=== PATIENT | male | born 1985 | race African-American/Black ===

== ENCOUNTER 2018-08-17 01:02 | Emergency (ER) | payer SELFPAY ==
[~2018-08-17] VITALS: Ht 195.6 cm; Wt 113.4 kg
[~2018-08-17 01:02] MED LIST: CYCLOBENZAPRINE10 MG ORAL; IBUPROFEN600 MG ORAL
[2018-08-17 01:11] VITALS: BP 165/90
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
[2018-08-17] MEDS ORDERED: NORCO 5-325 TA1 EACH ORAL (02:28)
[2018-08-17] MEDS ORDERED: IBUPROFEN600 MG ORAL (02:28)
[2018-08-17] MEDS ORDERED: Tetanus/Diptheria/Pertussis Vaccine 0.5ml Syr IM ONE (02:30)
[2018-08-17] MEDS ORDERED: Bacitracin Oint UD TOPIC ONE ×2 (02:34→02:45)
[2018-08-17 02:40] VITALS: BP 165/90
--- NOTE | 2018-08-17 10:58 | Diagnostic Imaging Report ---
Indication: Back pain Comparison: None Findings: 3 views of the lumbar spine were obtained. No acute fracture or malalignment is identified. Vertebral body heights and disk spaces are well maintained. Posterior elements are unremarkable. Impression: No acute findings.
--- NOTE | 2018-08-17 10:58 | Diagnostic Imaging Report ---
Indication: left hand pain. Findings: 3 views of the left hand were obtained. There is an older fracture of the fifth metacarpal which appears partially healed. No acute fractures identified. IMPRESSION: Old fracture of the fifth metacarpal. This appears partially healed
--- NOTE | 2018-08-17 10:59 | Diagnostic Imaging Report ---
Indication: Pain Knee pain/trauma 3 views of the right knee were obtained. Findings: There is intramedullary anselmo partially demonstrated in the upper part of the tibia. There is a fracture partially seen involving the mid tibial shaft. There is anterior soft tissue swelling. There is no acute fracture appreciated. No malalignment identified. IMPRESSION: No acute injury appreciated.
== END 2018-08-17 02:42 | disposition home or self-care (01) ==
LOC: EMR 01:37
DX: S60.222A Contusion of left hand, initial encounter (principal); S33.5XXA Sprain of ligaments of lumbar spine, initial encounter; S80.01XA Contusion of right knee, initial encounter; S91.101A Unspecified open wound of right great toe without damage to nail, initial encounter; V43.52XA Car driver injured in collision with other type car in traffic accident, initial encounter; Y92.410 Unspecified street and highway as the place of occurrence of the external cause; Z23 Encounter for immunization
CPT/HCPCS: 72110; 90471; 90715; 99284

== ENCOUNTER 2019-09-13 01:25 | Emergency (ER) | payer MEDICAID ==
[~2019-09-13] VITALS: Ht 195.6 cm; Wt 109.8 kg
[~2019-09-13 01:25] MED LIST changes: +NORCO 5-325 TA1 EACH ORAL
[2019-09-13 01:45] VITALS: BP 143/98
[2019-09-13] MEDS ORDERED: Ketorolac 30mg Inj IV ONE (01:45)
--- NOTE | 2019-09-13 01:49 | Emergency Room Report ---
History of Present Illness General Chief Complaint: Abdominal Pain Source: Patient Present Illness HPI This is a 34-year-old male who had a recent diagnosis of polycystic kidney disease. He had back pain and went to an ER in [facility]. He had blood work done and CT scan done. Diagnosed with polycystic ovarian disease and microscopic hematuria. He was given a prescription for Zofran, Percocet, Keflex. He said back pain is better but now abdominal pain. No nausea no vomiting has not eaten anything for 5 days. He said he has not a bowel movement in 5 days. Pain is crampy in nature. Mostly left lower quadrant. No trauma. Pain is 9 out of 10. Allergies: Coded Allergies: No Known Allergies (Unverified , 08/17/18) Patient History Past Medical History: see triage record, old chart reviewed Past Surgical History: none Pertinent Family History: none Social History: Reports: smoking, drug use - Marijuana Immunizations: other Reviewed Nursing Documentation: PMH: Agreed; PSxH: Agreed Nursing Documentation-PMH Past Medical History: No Stated History Review of Systems Eye: Denies: eye pain, blurred vision ENT: Denies: ear pain, nose congestion, throat swelling Respiratory: Denies: cough, shortness of breath Cardiovascular: Denies: chest pain, palpitations Gastrointestinal: Reports: abdominal pain; Denies: diarrhea, nausea, vomiting Musculoskeletal: Denies: back pain, joint pain Skin: Denies: rash Neurological: Denies: headache, numbness Endocrine: Denies: increased thirst, increased urine Hematologic/Lymphatic: Denies: easy bruising All Other Systems: negative except mentioned in HPI Physical Exam Vital Signs Date Time Temp Pulse Resp B/P (MAP) Pulse Ox O2 Delivery O2 Flow Rate FiO2 09/13/19 01:27 98.6 92 16 143/98 (113) 96 Room Air Vitals normal Sp02 EP Interpretation: reviewed, normal General Appearance: well appearing, no apparent distress, alert Head: normocephalic, atraumatic Eyes: bilateral eye PERRL, bilateral eye EOMI ENT: hearing grossly normal, normal pharynx Neck: full range of motion, supple, no meningismus Respiratory: chest non-tender, lungs clear, normal breath sounds Cardiovascular #1: regular rate, rhythm, no murmur Gastrointestinal: normal bowel sounds, non tender, no mass, no organomegaly, no bruit, non-distended Musculoskeletal: back normal, gait/station normal, normal range of motion Psychiatric: mood/affect normal Medical Decision Making Diagnostic Impression: Primary Impression: Polycystic kidney disease Additional Impressions: Abdominal pain Qualified Codes: R10.84 - Generalized abdominal pain LINA (acute kidney injury) ER Course This patient presents with abdominal pain. No evidence of any obstruction or acute abdomen. He has numerous bilateral kidney cysts. This is consistent with polycystic kidney disease. Creatinine is 1.5. Show evidence of damage. Advised patient to avoid NSAID and medication that filter through the kidney. He does have ketones so I gave him 2 L of IV fluid. No evidence of acute abdomen. Will discharge home afterward. CT/MRI/US Diagnostic Results CT/MRI/US Diagnostic Results : Imaging Test Ordered: CT abdomen and pelvis Impression Read by radiologist. Polycystic kidney disease. Last Vital Signs Date Time Temp Pulse Resp B/P (MAP) Pulse Ox O2 Delivery O2 Flow Rate FiO2 09/13/19 01:27 98.6 92 16 143/98 (113) 96 Room Air Status: improved Disposition: HOME, SELF-CARE Condition: Stable Referrals: NON PHYSICIAN (PCP) Additional Instructions: Stay well-hydrated. Avoid medication that filtered to the kidney like NSAIDs ( Motrin, Advil, Aleve, Naprosyn to name a few). Follow-up with your doctor in 7 days. Return if worse. Jaziel Marley MD Sep 13, 2019 01:49
[2019-09-13 02:08] LABS: EOSINOPHILS % (AUTO) 1.4 % (0.0-3.0); HEMATOCRIT 30.7 % (42.0-52.0); HEMOGLOBIN 10.3 G/DL (14.2-18.0); LYMPHOCYTES % (AUTO) 19.1 % (20.0-45.0); MEAN CORPUSCULAR VOLUME 82 FL (80-99); MONOCYTES % (AUTO) 10.6 % (1.0-10.0); NEUTROPHILS % (AUTO) 67.9 % (45.0-75.0); PLATELET COUNT 367 K/UL (150-450); RED BLOOD COUNT 3.73 M/UL (4.70-6.10); RED CELL DISTRIBUTION WIDTH 11.1 % (11.6-14.8); WHITE BLOOD COUNT 7.9 K/UL (4.8-10.8)
[2019-09-13 02:09] LABS: APPEARANCE,URINE CLEAR; BILIRUBIN, URINE NEGATIVE (NEGATIVE); GLUCOSE, URINE (UA) NEGATIVE (NEGATIVE); KETONES,URINE 3+ (NEGATIVE); LEUKOCYTE ESTERASE ,URINE NEGATIVE (NEGATIVE); NITRITE,URINE NEGATIVE (NEGATIVE); PH,URINE 6 (4.5-8.0); PROTEIN,URINE 3+ (NEGATIVE); UROBILINOGEN,URINE NORMAL MG/DL (0.0-1.0)
[2019-09-13 02:12] LABS: COLOR,URINE YELLOW
[2019-09-13 02:17] LABS: ANION GAP 11 mmol/L (5-15); BLOOD UREA NITROGEN 19 mg/dL (7-18); CALCIUM 9.2 MG/DL (8.5-10.1); CARBON DIOXIDE 27 MMOL/L (21-32); CHLORIDE 102 MMOL/L (98-107); CREATININE 1.5 MG/DL (0.55-1.30); POTASSIUM 3.7 MMOL/L (3.5-5.1); SODIUM 140 MMOL/L (136-145)
--- NOTE | 2019-09-13 02:46 | Diagnostic Imaging Report ---
Indication: Abdominal pain for one day Technique: Spiral acquisitions obtained through the abdomen and pelvis. No oral contrast utilized, per emergency room physician request No IV contrast utilized, per referring physician request.. Multiplanar reconstructions were generated. Total dose length product 1065 mGycm. CTDIvol(s) 80 mGy. Dose reduction achieved using automated exposure control Comparison: None Findings: Both kidneys are enlarged, contains innumerable cysts. There are also high attenuation masses, most of which measure over 70 Hounsfield units and therefore most likely represent hyperdense proteinaceous cysts. Others of these are just below 70 Hounsfield units and are therefore nonspecific as regards proteinaceous cyst versus solid lesion. The left kidney is asymmetrically larger than the right. There is an unusual rim of hyperattenuation in the periphery of the left kidney, per particularly superiorly, laterally, and posteriorly. This opacity overall appears to be a confluence similar opacity, but portions of it appear to conform to several cysts that are present within the area. Overall dimensions of this area are 11 cm AP by 5 cm transverse by 11 cm craniocaudad. There is thickening of Gerota's fascia which is not evident on the contralateral side as well as some stranding of the perinephric fat. A few parenchymal calcifications are also seen in the left kidney. No renal or ureteral calculi, hydronephrosis, or hydroureter demonstrated. The bladder, prostate, seminal vesicles appear unremarkable. Lack of IV contrast limits assessment of the other solid organs. The liver, gallbladder, bile ducts, pancreas, spleen, adrenals are unremarkable. No retroperitoneal or mesenteric mass or adenopathy. No pelvic mass or adenopathy. The appendix is normal. No evidence of diverticulosis or diverticulitis.. No small bowel distention. No free or loculated intraperitoneal gas or fluid is evident. Distal esophagus, stomach, duodenum are unremarkable. There is a small left pleural effusion. There is some atelectasis at the left lung base. The bones are unremarkable. Impression: Bilateral enlarged polycystic kidneys Unusual asymmetric enlargement of the left kidney. There is a band of high attenuation around the periphery. Most likely, this just represents a cluster of hyperdense proteinaceous cysts, as the boundaries of this appear to conform with individual cysts. However, the possibility of a subcapsular hematoma should also be considered Thickening of Gerota's fascia and some stranding of the perinephric fat, could be related to the above finding or could be secondary to a ruptured cyst. Other hyperdense and borderline hyperdense cysts, as described Small left pleural effusion, left basilar atelectasis This agrees with the preliminary interpretation provided overnight by [facility] teleradiology service. The CT scanner at [facility] is accredited by the [employer] and the scans are performed using protocols designed to limit radiation exposure to as low as reasonably achievable to attain images of sufficient resolution adequate for diagnostic evaluation.
[2019-09-13] MEDS ORDERED: HYDROCODON-ACE1 EA15 ORAL (03:17)
[2019-09-13 04:00] VITALS: BP 132/88
== END 2019-09-13 04:00 | disposition home or self-care (01) ==
LOC: EMR 01:44
DX: Q61.3 Polycystic kidney, unspecified (principal); R10.84 Generalized abdominal pain; N17.9 Acute kidney failure, unspecified; F17.200 Nicotine dependence, unspecified, uncomplicated
CPT/HCPCS: 36415; 74176; 80048; 81003; 85025; 96361; 96374; J1885; Z7502; 99284

== ENCOUNTER 2021-01-15 01:19 | Emergency (ER) | payer MEDICAID ==
[~2021-01-15] VITALS: Ht 195.6 cm; Wt 113.4 kg
[~2021-01-15 01:19] MED LIST changes: +HYDROCODON-ACE1 EA15 ORAL
[2021-01-15 01:26] VITALS: BP 132/78
--- NOTE | 2021-01-15 01:56 | Emergency Room Report ---
History of Present Illness General Chief Complaint: Foreign Body Source: Patient Present Illness HPI This is a 35-year-old male with no significant past medical history. He presents with chief complaint of possible foreign body in his right ear. He said that he was using a Q-tip when he felt that there may be some left in his ear. Hard time hearing. Onset today. No other complaint. No fever chills but no drainage. Allergies: Coded Allergies: No Known Allergies (Unverified , 08/17/18) COVID-19 Screening Contact w/high risk pt: No Experienced COVID-19 symptoms?: No COVID-19 Testing performed DIESEL ENGINE SPECIALIST: No Patient History Past Medical History: see triage record, old chart reviewed Past Surgical History: none Pertinent Family History: none Social History: Denies: smoking Immunizations: other Reviewed Nursing Documentation: PMH: Agreed; PSxH: Agreed Review of Systems Eye: Denies: eye pain, blurred vision ENT: Denies: ear pain, nose congestion, throat swelling Respiratory: Denies: cough, shortness of breath Cardiovascular: Denies: chest pain, palpitations Gastrointestinal: Denies: abdominal pain, diarrhea, nausea, vomiting Musculoskeletal: Denies: back pain, joint pain Skin: Denies: rash Neurological: Denies: headache, numbness Endocrine: Denies: increased thirst, increased urine Hematologic/Lymphatic: Denies: easy bruising All Other Systems: negative except mentioned in HPI Physical Exam Vital Signs Date Time Temp Pulse Resp B/P (MAP) Pulse Ox O2 Delivery O2 Flow Rate FiO2 01/15/21 01:26 98.2 65 20 132/78 (96) 100 Vitals normal Sp02 EP Interpretation: reviewed, normal General Appearance: well appearing, no apparent distress, alert Head: normocephalic, atraumatic Eyes: bilateral eye PERRL, bilateral eye EOMI ENT: hearing grossly normal, normal pharynx, other - Left ear is normal. Right ear is impacted with cerumen. No foreign body. Neck: full range of motion, supple, no meningismus Respiratory: chest non-tender, lungs clear, normal breath sounds Cardiovascular #1: regular rate, rhythm, no murmur Gastrointestinal: normal bowel sounds, non tender, no mass, no organomegaly, no bruit, non-distended Musculoskeletal: back normal, normal range of motion, gait/station normal Psychiatric: mood/affect normal Procedures Additional Procedure Procedure Narrative Procedure: Ear irrigation cerumen impaction Indication: Cerumen impaction Description: I irrigated the ear with normal saline using a 18-gauge angiocatheter. Large piece of wax removed. On recheck there is no trauma or perforation. Patient tolerated procedure without any problem. No complication. Medical Decision Making Diagnostic Impression: Primary Impression: Impacted cerumen of right ear ER Course Patient with cerumen impaction. No infection no foreign body. Last Vital Signs Date Time Temp Pulse Resp B/P (MAP) Pulse Ox O2 Delivery O2 Flow Rate FiO2 01/15/21 01:26 98.2 65 20 132/78 (96) 100 Status: improved Disposition: HOME, SELF-CARE Condition: Stable Referrals: NOT CHOSEN IPA/,REFERRING (PCP) Additional Instructions: Follow-up with your doctor in 7 days as needed. Return if symptoms worsen. Jaziel Marley MD Jan 15, 2021 01:56
== END 2021-01-15 02:02 | disposition home or self-care (01) ==
LOC: EMR 01:44
DX: H61.21 Impacted cerumen, right ear (principal)
CPT/HCPCS: 69209; Z7502; 69210; 99282